=== PATIENT | female | born 2000 | race Two or more races ===

== ENCOUNTER 2021-01-21 02:24 | Emergency (ER) | payer SELFPAY ==
[~2021-01-21] VITALS: Ht 157.5 cm; Wt 113.4 kg
[2021-01-21 02:48] VITALS: BP 126/84
[2021-01-21 03:58] LABS: Basophils # (auto) 0 10 ^3/uL (0-0.2); Basophils % (auto) 0.4 % (0.0-2.0); Eosinophils # (auto) 0 10 ^3/uL (0-0.8); Eosinophils % (auto) 0.4 % (0.0-7.0); Hematocrit 40.2 % (36.0-46.0); Hemoglobin 13.7 g/dL (12.2-16.2); Lymphocytes # (auto) 2.7 10 ^3/uL (0.4-5.4); Lymphocytes % (auto) 27.7 % (10.0-50.0); Mean Corpuscular Hemoglobin 28.1 pg (28.0-32.0); Mean Corpuscular Hgb Conc. 33.9 g/dL (32.0-36.0); Mean Corpuscular Volume 82.6 fL (80.0-100.0); Monocytes # (auto) 0.5 10 ^3/uL (0-1.3); Monocytes % (auto) 5.3 % (0.0-12.0); Neutrophils # (auto) 6.4 10 ^3/uL (1.6-8.6); Neutrophils % (auto) 66.2 % (37.0-80.0); Nucleated Red Blood Cells % 0.1 %; Red Blood Cells 4.87 10^6/uL (4.0-5.20); Red Cell Distribution Width 13.6 % (11.8-14.3); White Blood Cell 9.7 10^3/uL (4.4-10.8)
[2021-01-21 04:28] LABS: Potassium 3.2 mmol/L (3.5-5.1)
[2021-01-21 04:33] LABS: Albumin 3.8 g/dL (3.4-5.0); BUN/Creatinine Ratio 21.1; Calcium 8.6 mg/dL (8.5-10.1)
[2021-01-21 04:36] LABS: Bilirubin, Total 0.4 mg/dL (0.2-1.0); Total Protein 7.9 g/dL (6.4-8.2)
== END 2021-01-21 03:40 | disposition left against medical advice (07) ==
LOC: EDBD 02:24 → EDSEX 02:24 → ER 02:24
DX: F10.129 Alcohol abuse with intoxication, unspecified (principal); R11.10 Vomiting, unspecified; Y90.8 Blood alcohol level of 240 mg/100 ml or more; Z53.21 Procedure and treatment not carried out due to patient leaving prior to being seen by health care provider; Z20.822 Contact with and (suspected) exposure to COVID-19
CPT/HCPCS: 36415; 80053; 80320; 85025

== ENCOUNTER 2023-01-14 20:38 | Emergency (ER) | payer MEDICAID, OTHER ==
[~2023-01-14] VITALS: Ht 152.4 cm; Wt 89.7 kg
[2023-01-15] MEDS ORDERED: CYCL-837 PO (02:12)
[2023-01-15] MEDS ORDERED: ACET500T58 PO (02:12)
[2023-01-15 02:45] VITALS: BP 132/78; PULSE 69; RESP 16; TEMP 98; O2SAT 98
== END 2023-01-15 03:12 | disposition home or self-care (01) ==
LOC: ER 20:38
DX: S16.1XXA Strain of muscle, fascia and tendon at neck level, initial encounter (principal); S09.8XXA Other specified injuries of head, initial encounter; Z79.1 Long term (current) use of non-steroidal anti-inflammatories (NSAID); Z79.899 Other long term (current) drug therapy; V43.62XA Car passenger injured in collision with other type car in traffic accident, initial encounter; Y93.89 Activity, other specified; Y92.481 Parking lot as the place of occurrence of the external cause; Y99.8 Other external cause status
CPT/HCPCS: 70450; 72125

== ENCOUNTER 2024-07-16 18:05 | Observation (INO) | payer MEDICAID ==
[~2024-07-16] VITALS: Ht 154.9 cm; Wt 86.2 kg
[~2024-07-16 18:05] MED LIST: ACET500T58 PO; CYCL-837 PO
[2024-07-16] MEDS ORDERED: TERBUTALINE SULFATE 1 MG/ML 1ML VIAL SC ONE (19:20)
[2024-07-16] MEDS: TERBUTALINE SULFATE 1 MG/ML 1ML VIAL SC SCH (19:25)
--- NOTE | 2024-07-16 21:57 | DVHDS2 ---
Physician Discharge Progress N Final Diagnosis: 3rd trim preg, nuchal cord contractions, not in labor Secondary Diagnosis: surveillance Operations or Procedures: Operations or Procedures NST Commentary: Commentary Terbutaline x 2 Cervix closed, not in labor NST , no decels. categ 1 Condition on Discharge: Stable Disposition: Home Discharge Instructions: Diet: Regular Activity: Light activity Follow Up/Referral: PRN Medications: N/A Follow Up Care: Discharge Statement: "Patient was advised to return to the ER or call 911 if any headaches, dizziness, shortness of breath, chest pain, abdominal pain, bleeding, fevers, or worsening of medical condition. Patient was counseled about treatment plan, medications, possible side effects, patientverbalized understanding. All questions were answered to the best of my ability. This discharge took greater then 30 minutes in planning, reviewing documentation, counseling the patient, and discussing with other team members." Visit Coding OBGYN Date of Service: Jul 16, 2024 Billing Provider: CHET WOLFE DO AUTO TRANSMISSION MECHANIC Common Visit Codes: 56392-VFZ/OBS SAME DATE (MOD) CHET WOLFE DO Jul 16, 2024 21:57
== END 2024-07-16 21:32 | disposition home or self-care (01) ==
LOC: LDRP 18:05
PROVIDERS: ADMIT Obstetrics & Gynecology; ATTEND Obstetrics & Gynecology
DX: O69.81X0 Labor and delivery complicated by cord around neck, without compression, not applicable or unspecified (principal); O60.03 Preterm labor without delivery, third trimester; Z98.890 Other specified postprocedural states; Z79.899 Other long term (current) drug therapy; Z3A.33 33 weeks gestation of pregnancy
CPT/HCPCS: 59025; 81002; 94760; 96372; G0378; J3105

== ENCOUNTER 2024-07-18 11:17 | Observation (INO) | payer MEDICAID ==
--- NOTE | 2024-07-18 12:51 | DVHDS2 ---
Physician Discharge Progress N Final Diagnosis: IUP 34 wk, NOT in labor Secondary Diagnosis: Encounter for NST/BPP Operations or Procedures: Operations or Procedures NST/BPP/SELENE all WNL NST reactive categ 1 SELENE 9cm Cx length > 3cm (Normal) Condition on Discharge: Stable Disposition: Home Discharge Instructions: Diet: Regular Activity: Light activity Follow Up/Referral: PRN Medications: NA Follow Up Care: Discharge Statement: "Patient was advised to return to the ER or call 911 if any headaches, dizziness, shortness of breath, chest pain, abdominal pain, bleeding, fevers, or worsening of medical condition. Patient was counseled about treatment plan, medications, possible side effects, patientverbalized understanding. All questions were answered to the best of my ability. This discharge took greater then 30 minutes in planning, reviewing doc umentation, counseling the patient, and discussing with other team members." Visit Coding OBGYN Date of Service: Jul 18, 2024 Billing Provider: CHET WOLFE DO DRYWALL MECHANIC Common Visit Codes: [id number] INP/OBS CARE(HIGH) CHET WOLFE DO Jul 18, 2024 12:51
[2024-07-18] MEDS ORDERED: PREN-96 PO (12:55)
--- NOTE | 2024-07-18 12:59 | DVH ---
CLINICAL HISTORY: Nuchal cord. labor. COMPARISON: None TECHNIQUE: biophysical profile was performed. Transabdominal sonographic images of the fetus we re obtained. FINDINGS: The fetus is in cephalic position. heart rate measures 145 BPM. Amniotic fluid index measures 9 cm. The placenta is fundal in position without visualized evidence for previa or abruption . Cervix was measured transabdominally as 3.2 cm. BPP profile is an overall score of 8/8, with 2/2 points for breathing, with at least one episode of breathing over a 30 second duration during a 30 minute observation, 2/2 points for m ovements, with 3 or more discrete body or limb movements, 2/2 points for tone, with one or more episodes of extremity extension with return to flexion, or opening and closing of hand, and 2/ 2 points for amniotic fluid, with at least 1 pocket of amniotic fluid that measures 2 cm in 2 perpend icular planes. IMPRESSION: BPP score of 8/8.
== END 2024-07-18 13:05 | disposition home or self-care (01) ==
LOC: LDRP 11:17
PROVIDERS: ADMIT Obstetrics & Gynecology; ATTEND Obstetrics & Gynecology
DX: O62.9 Abnormality of forces of labor, unspecified (principal); Z98.890 Other specified postprocedural states; Z79.899 Other long term (current) drug therapy; Z3A.34 34 weeks gestation of pregnancy
CPT/HCPCS: 59025; 76819; 81002; 94760; G0378

== ENCOUNTER 2024-07-25 07:40 | Observation (INO) | payer MEDICAID ==
[~2024-07-25 07:40] MED LIST changes: +PREN-96 PO
--- NOTE | 2024-07-25 10:17 | DVH ---
BIOPHYSICAL PROFILE HISTORY: NUCHAL/ PTL Comparison Study: None available at time of dictation. TECHNIQUE: Multiple real-time grayscale sonographic images through the gravid uterus of the fetus wit h duplex doppler color flow and M-mode spectral analysis FINDINGS: BIOPHYSICAL PROFILE: breathing score: 2 movement score: 2 tone score: 2 Quantitative SELENE score: 2 (SELENE: 10.8 cm.) Total score: 8/8 The cervix 3.5 cm Single live fetus in cephalic presentation. heart rate 128 beats per minute. posterior/fundal placenta without previa or abruption Biophysical profile score 8/8 corresponding to an JACK of 08/29/24 IMPRESSION: Biophysical profile score: 8/8 A nuchal cord is seen.
--- NOTE | 2024-07-26 06:23 | DVHDS2 ---
Discharge Summary Date of Admission July 25, 2024 at 09:05 Date of Discharge: July 25, 2024 Admitting Diagnosis nuchal cord 35 week Brief Hx & Hospital Course: normal reassuring FHT Condition at Discharge: Good Final Diagnosis/Problems List 35 weeks reassuring heart tones Discharge Disposition: Home Discharge Instruct/Medications Diet: Regular Activity: Light activity Discharge Statement: "Patient was advised to return to the ER or call 911 if any headaches, dizziness, shortness of breath, chest pain, abdominal pain, bleeding, fevers, or worsening of medical condition. Patient was counseled about treatment plan, medications, possible side effects, patientverbalized understanding. All questions were answered to the best of my ability. This discharge took greater then 30 minutes in planning, reviewing documentation, counseling the patient, and discussing with other team members." ASSESSMENT ASSESSMENT Assessment Visit Coding OBGYN Date of Service: July 26, 2024 Billing Provider: CHESTER AVILA DO POUCH MAKER Common Visit Codes: 75760-SHM/OBS SAME DATE (LOW), 32165-WBO/OBS SAME DATE (MOD), 55129-OZU/OBS SAME DATE (HIGH) POUCH MAKER Procedure Codes: 83444-46- NON-STRESS TEST CHESTER AVILA DO July 26, 2024 06:23
== END 2024-07-25 12:15 | disposition home or self-care (01) ==
LOC: LDRP 09:05
PROVIDERS: ADMIT Obstetrics & Gynecology; ATTEND Obstetrics & Gynecology
DX: O69.81X0 Labor and delivery complicated by cord around neck, without compression, not applicable or unspecified (principal); Z98.890 Other specified postprocedural states; Z79.899 Other long term (current) drug therapy; Z3A.35 35 weeks gestation of pregnancy
CPT/HCPCS: 59025; 76819; 81002; G0378

== ENCOUNTER 2024-08-01 07:48 | Observation (INO) | payer MEDICAID ==
--- NOTE | 2024-08-01 11:50 | DVH ---
CLINICAL HISTORY: Nuchal cord. labor. COMPARISON: US BIOPHYSICAL PROFILE on DOS: 07/25/24, US BIOPHYSICAL PROFILE on DOS: 07/18/24 TECHNIQUE: biophysical profile was performed. Transabdominal sonographic images of the fetus we re obtained. FINDINGS: The fetus is in cephalic position. heart rate measures 157 BPM. Amniotic fluid index measures 11.2 cm. The placenta is posterior/fundal in position without evidence of previa or abruptio n. Nuchal cord again visualized. BPP profile is an overall score of 8/8, with 2/2 points for breathing, with at least one episode of breathing over a 30 second duration during a 30 minute observation, 2/2 points for m ovements, with 3 or more discrete body or limb movements, 2/2 points for tone, with one or more episodes of extremity extension with return to flexion, or opening and closing of hand, and 2/ 2 points for amniotic fluid, with at least 1 pocket of amniotic fluid that measures 2 cm in 2 perpend icular planes. IMPRESSION: 1. BPP score of 8/8. 2. Nuchal cord again visualized.
--- NOTE | 2024-08-01 20:14 | DVHDS2 ---
Physician Discharge Progress N Final Diagnosis: iugr 36wks Operations or Procedures: Operations or Procedures nst reactive reviewed Condition on Discharge: Good Disposition: Home Discharge Instructions: Diet: Regular Activity: No Restrictions, As Tolerated Medications: na Follow Up Care: Specialist: 3d Discharge Statement: "Patient was advised to return to the ER or call 911 if any headaches, dizziness, shortness of breath, chest pain, abdominal pain, bleeding, fevers, or worsening of medical condition. Patient was counseled about treatment plan, medications, possible side effects, patientverbalized understanding. All questions were answered to the best of my ability. This discharge took greater then 30 minutes in planning, reviewing documentation , counseling the patient, and discussing with other team members." Visit Coding OBGYN Date of Service: August 01, 2024 Billing Provider: ISIDRO COLE DO GLUING MACHINE OPERATOR Common Visit Codes: 87737-[id number] INP/OBS CARE (HIGH), 23411-[id number] INP/OBS CARE(HIGH) GLUING MACHINE OPERATOR Procedure Codes: 46305-36- NON-STRESS TEST ISIDRO COLE DO August 01, 2024 20:14
== END 2024-08-01 12:25 | disposition home or self-care (01) ==
LOC: LDRP 11:04
PROVIDERS: ADMIT Obstetrics & Gynecology; ATTEND Obstetrics & Gynecology
DX: O36.5930 Maternal care for other known or suspected poor fetal growth, third trimester, not applicable or unspecified (principal); Z98.890 Other specified postprocedural states; Z79.899 Other long term (current) drug therapy; Z3A.36 36 weeks gestation of pregnancy
CPT/HCPCS: 76819; 81002; 94760; G0378

== ENCOUNTER 2024-08-04 13:12 | Observation (INO) | payer MEDICAID ==
--- NOTE | 2024-08-04 14:43 | DVHDS2 ---
Physician Discharge Progress N Final Diagnosis: iugr,nuchal [id number] Operations or Procedures: Operations or Procedures nst reactive reviewed Condition on Discharge: Good Disposition: Home Discharge Instructions: Diet: Regular Activity: No Restrictions, As Tolerated Medications: na Follow Up Care: Specialist: 4d Discharge Statement: "Patient was advised to return to the ER or call 911 if any headaches, dizziness, shortness of breath, chest pain, abdominal pain, bleeding, fevers, or worsening of medical condition. Patient was counseled about treatment plan, medications, possible side effects, patient�verbalized understanding. All questions were answered to the best of my ability. This discharge took greater then 30 minutes in planning, reviewing do cumentation, counseling the patient, and discussing with other team members." Visit Coding OBGYN Date of Service: August 04, 2024 Billing Provider: ISIDRO COLE DO ANDROID IOS DEVELOPER Common Visit Codes: 29037-ONRAJDZ OBS CARE (HIGH) ANDROID IOS DEVELOPER Procedure Codes: 89030-30- NON-STRESS TEST ISIDRO COLE DO August 04, 2024 14:43
--- NOTE | 2024-08-04 14:45 | DVH ---
BIOPHYSICAL PROFILE HISTORY: nuchal TECHNIQUE: Multiple transabdominal real-time grayscale sonographic images through the gravid uterus of the fetus with duplex Doppler color flow and M-mode spectral analysis FINDINGS: BIOPHYSICAL PROFILE: breathing score: 2 movement score: 2 tone score: 2 Quantitative SELENE score: 2 (SELENE: 13 Cm, mvp: 4 CM.) Total score: 8/8 The cervix NOT MEASURED Single live fetus in cephalic presentation. heart rate 167 beats per minute. Posterior Grade 2 placenta without previa or abruption Single live fetus at 36 weeks 3 days Biophysical profile score 8/8 corresponding to an JACK of 08/29/2024 Estimated weight not calculated g IMPRESSION: 1. Biophysical profile score: 8/8 2. Nuchal cord not visualized however color Doppler not provide at off the cervical region. 3. FHR: 167 bpm
== END 2024-08-04 15:19 | disposition home or self-care (01) ==
LOC: LDRP 13:12
PROVIDERS: ADMIT Obstetrics & Gynecology; ATTEND Obstetrics & Gynecology
DX: O36.5930 Maternal care for other known or suspected poor fetal growth, third trimester, not applicable or unspecified (principal); O69.81X0 Labor and delivery complicated by cord around neck, without compression, not applicable or unspecified; Z3A.36 36 weeks gestation of pregnancy; Z79.899 Other long term (current) drug therapy
CPT/HCPCS: 59025; 76819; 81002; 94760; G0378

== ENCOUNTER 2024-08-09 12:35 | Observation (INO) | payer MEDICAID ==
--- NOTE | 2024-08-09 16:30 | DVH ---
BIOPHYSICAL PROFILE HISTORY: IUGR TECHNIQUE: Multiple transabdominal real-time grayscale sonographic images through the gravid uterus of the fetus with duplex Doppler color flow and M-mode spectral analysis FINDINGS: BIOPHYSICAL PROFILE: breathing score: 2/2 movement score: 2/2 tone score: 2/2 Quantitative SELENE score: 2/2 (SELENE: 13.6 Cm.) Total score: 8/8 The cervix closed Single live fetus in cephalic presentation. heart rate 138 beats per minute. Grade 3 posterior placenta without previa or abruption IMPRESSION: 1. Biophysical profile score: 8/8.No change 2. There is a nuchal cord present
--- NOTE | 2024-08-09 17:14 | DVHDS2 ---
Physician Discharge Progress N Final Diagnosis: IUGR, Nuchal cord, IUP 37 wk Operations or Procedures: Operations or Procedures NST/BPP/ SELENE NST reactive reviewed No decelerations Condition on Discharge: Stable Disposition: Home Discharge Instructions: Diet: Regular Activity: No Restrictions, As Tolerated Follow Up/Referral: As scheduled Medications: N/A Follow Up Care: Discharge Statement: "Patient was advised to return to the ER or call 911 if any headaches, dizziness, shortness of breath, chest pain, abdominal pain, bleeding, fevers, or worsening of medical condition. Patient was counseled about treatment plan, medications, possible side effects, patientverbalized understanding. All questions were answered to the best of my ability. This discharge took greater then 30 minutes in planning, reviewing documentation, counseling the patient, and discussing with other team members." Visit Coding OBGYN Date of Service: August 09, 2024 Billing Provider: CHET WOLFE DO TRADE CLERK Common Visit Codes: 47000-GLR/OBS SAME DATE (MOD) TRADE CLERK Procedure Codes: 16654-01- NON-STRESS TEST CHET WOLFE DO August 09, 2024 17:14
== END 2024-08-09 14:47 | disposition home or self-care (01) ==
LOC: LDRP 12:35
PROVIDERS: ADMIT Obstetrics & Gynecology; ATTEND Obstetrics & Gynecology
DX: O36.5930 Maternal care for other known or suspected poor fetal growth, third trimester, not applicable or unspecified (principal); O69.81X0 Labor and delivery complicated by cord around neck, without compression, not applicable or unspecified; Z98.890 Other specified postprocedural states; Z79.899 Other long term (current) drug therapy; Z3A.37 37 weeks gestation of pregnancy
CPT/HCPCS: 59025; 76819; 81002; 94760; G0378

== ENCOUNTER 2024-08-12 06:20 | Observation (INO) | payer MEDICAID ==
--- NOTE | 2024-08-12 10:28 | DVH ---
BIOPHYSICAL PROFILE HISTORY: IUGR TECHNIQUE: Multiple transabdominal real-time grayscale sonographic images through the gravid uterus o f the fetus with duplex doppler color flow and M-mode spectral analysis FINDINGS: BIOPHYSICAL PROFILE: breathing score: 2 movement score: 2 tone score: 2 Quantitative SELENE score: 2 (SELENE: 10.1 cm.) Total score: 8/8 Single live fetus in cephalic presentation. heart rate 146 beats per minute. Posterior placenta without previa or abruption Biophysical profile score 8/8 corresponding to an JACK of 08/29/24 IMPRESSION: Biophysical profile score: 8/8 A possible nuchal cord is seen.
--- NOTE | 2024-08-13 13:30 | DVHDS2 ---
Physician Discharge Progress N Final Diagnosis: iugr 37wks Operations or Procedures: Operations or Procedures nst reactive reviewed ,sono Condition on Discharge: Good Disposition: Home Discharge Instructions: Diet: Regular Activity: No Restrictions, As Tolerated Medications: na Follow Up Care: Specialist: 1d Discharge Statement: "Patient was advised to return to the ER or call 911 if any headaches, dizziness, shortness of breath, chest pain, abdominal pain, bleeding, fevers, or worsening of medical condition. Patient was counseled about treatment plan, medications, possible side effects, patientverbalized understanding. All questions were answered to the best of my ability. This discharge took greater then 30 minutes in planning, reviewing documen tation, counseling the patient, and discussing with other team members." Visit Coding OBGYN Date of Service: August 12, 2024 Billing Provider: ISIDRO COLE DO RESIDENTIAL SERVICE TECHNICIAN Common Visit Codes: 55993-CIAHNJA OBS CARE (HIGH) RESIDENTIAL SERVICE TECHNICIAN Procedure Codes: 80910-00- NON-STRESS TEST ISIDRO COLE DO August 13, 2024 13:30
== END 2024-08-12 12:02 | disposition home or self-care (01) ==
LOC: LDRP 09:36
PROVIDERS: ADMIT Obstetrics & Gynecology; ATTEND Obstetrics & Gynecology
DX: O36.5930 Maternal care for other known or suspected poor fetal growth, third trimester, not applicable or unspecified (principal); Z3A.37 37 weeks gestation of pregnancy; Z79.899 Other long term (current) drug therapy
CPT/HCPCS: 59025; 76819; 81002; 94760; G0378

== ENCOUNTER 2024-08-13 00:29 | Observation (INO) | payer MEDICAID ==
--- NOTE | 2024-08-13 09:27 | DVH ---
BIOPHYSICAL PROFILE HISTORY: IUGR/ non reactive tracing Comparison Study: US BIOPHYSICAL PROFILE on DOS: 08/12/24, US BIOPHYSICAL PROFILE on DOS: 08/09/24, US BIOPHYSICAL PROFILE on DOS: 08/04/24, US BIOPHYSICAL PROFILE on DOS: 08/01/24, US BIOPHYSICAL PROFILE o n DOS: 07/25/24 TECHNIQUE: Multiple real-time grayscale sonographic images through the gravid uterus of the fetus wi th duplex Doppler color flow and M-mode spectral analysis FINDINGS: BIOPHYSICAL PROFILE: breathing score: 2 movement score: 2 tone score: 2 Quantitative SELENE score: 2 (SELENE: 15.8 Cm.) Total score: 8 The cervix is not visualized Single live fetus in cephalic presentation. heart rate 130 beats per minute. Posterior placenta without previa or abruption No nuchal cord seen at this time. IMPRESSION: Biophysical profile score: 8
--- NOTE | 2024-08-13 11:45 | DVHDS2 ---
Physician Discharge Progress N Final Diagnosis: iugr 38wks Operations or Procedures: Operations or Procedures nst reviwed reactive,sono Condition on Discharge: Good Disposition: Home Discharge Instructions: Diet: Regular Activity: No Restrictions, As Tolerated Medications: na Follow Up Care: Specialist: one day for induction Discharge Statement: "Patient was advised to return to the ER or call 911 if any headaches, dizziness, shortness of breath, chest pain, abdominal pain, bleeding, fevers, or worsening of medical condition. Patient was counseled about treatment plan, medications, possible side effects, patientverbalized understanding. All questions were answered to the best of my ability. This discharge took greater then 30 minutes in planning, reviewing documentation, counseling the patient, and discussing with other team members." Visit Coding OBGYN Date of Service: August 13, 2024 Billing Provider: ISIDRO COLE DO PAPERHANGER SUPERVISOR Common Visit Codes: 92930-[id number] OBS CARE (HIGH) PAPERHANGER SUPERVISOR Procedure Codes: 42278-18- NON-STRESS TEST ISIDRO COLE DO August 13, 2024 11:45
== END 2024-08-13 10:07 | disposition home or self-care (01) ==
LOC: LDRP 07:26
PROVIDERS: ADMIT Obstetrics & Gynecology; ATTEND Obstetrics & Gynecology
DX: O36.5930 Maternal care for other known or suspected poor fetal growth, third trimester, not applicable or unspecified (principal); Z3A.38 38 weeks gestation of pregnancy; Z79.899 Other long term (current) drug therapy; Z98.890 Other specified postprocedural states
CPT/HCPCS: 59025; 76819; 81002; 94760; G0378

== ENCOUNTER 2024-08-14 07:04 | Inpatient (IN) | payer MEDICAID ==
[~2024-08-14] VITALS: Ht 152.4 cm; Wt 91.2 kg
[2024-08-14] MEDS ORDERED: BUTORPHANOL TARTRATE 2 MG/1 ML VIAL IV PRN ×2 (08:00)
[2024-08-14] MEDS ORDERED: LIDOCAINE 2%HCL (LOCAL ANESTH.) INJ 20ML MDV IJ PRN (08:00)
[2024-08-14 08:45] LABS: Basophils # (auto) 0 10 ^3/uL (0-0.2); Hematocrit 36.9 % (36.0-46.0); Lymphocytes # (auto) 1.6 10 ^3/uL (0.4-5.4); Monocytes # (auto) 0.7 10 ^3/uL (0-1.3); Platelet Count (auto) 209 10^3/uL (140-450); White Blood Cell 9.3 10^3/uL (4.4-10.8)
[2024-08-14 08:47] LABS: Basophils % (auto) 0.2 % (0.0-2.0); Eosinophils # (auto) 0 10 ^3/uL (0-0.8); Eosinophils % (auto) 0.4 % (0.0-7.0); Hemoglobin 12.2 g/dL (12.2-16.2); Lymphocytes % (auto) 17.1 % (10.0-50.0); Mean Corpuscular Hemoglobin 26.4 pg (28.0-32.0); Mean Corpuscular Hgb Conc. 33.1 g/dL (32.0-36.0); Mean Corpuscular Volume 79.6 fL (80.0-100.0); Monocytes % (auto) 7.1 % (0.0-12.0); Neutrophils % (auto) 75.2 % (37.0-80.0); Red Blood Cells 4.64 10^6/uL (4.0-5.20); Red Cell Distribution Width 15.1 % (11.8-14.3)
[2024-08-14] MEDS: miSOPROStol 50 MCG per PRE-CUT 1/2 TAB PO PRN (08:56)
[2024-08-14] MEDS: LACTATED RINGER'S 1,000 ML IV SCH (08:57)
[2024-08-14 09:01] LABS: INR 0.94 (0.9-1.15); Partial Thromboplastin Time 27.8 SEC (24.5-34.5)
[2024-08-14 09:04] LABS: Urine Bacteria None Seen /hpf (None Seen)
[2024-08-14 09:10] LABS: Alanine Aminotransferase 11 U/L (7-40); Albumin 3.7 g/dL (3.2-4.8); Anion Gap 11 (5-15); BUN/Creatinine Ratio 18.2 (10.0-20.0); Bilirubin, Total 0.4 mg/dL (0.2-1.0); Carbon Dioxide 21 mmol/L (20-31); Chloride 106 mmol/L (98-107); Glucose 89 mg/dL (74-106); Potassium 3.7 mmol/L (3.5-5.1); Sodium 138 mmol/L (136-145); Total Protein 6.1 g/dL (5.7-8.2)
[2024-08-14 09:13] LABS: Alkaline Phosphatase 117 U/L (46-116); Aspartate Aminotransferase 11 U/L (13-40); Blood Urea Nitrogen 6 mg/dL (9-23)
[2024-08-14 09:18] LABS: Urine Blood Negative /uL (Negative); Urine Clarity Clear (Clear); Urine Color Light-Yellow (Yellow); Urine Protein, UAD Negative (Negative); Urine Specific Gravity 1.019 (1.001-1.035); Urine Squamous Epithelial Cell FEW /hpf (<5); Urine Urobilinogen Normal (Negative); Urine WBC 2 /HPF (0-5)
[2024-08-14 09:24] LABS: Amphetamine Screen, Urine Neg (NEGATIVE); Barbiturate Scree,Urine Neg (NEGATIVE); Benzodiazephine Screen, Urine Neg (NEGATIVE); Cannabinoid Screen, Urine Neg (NEGATIVE); Cocaine Screen, Urine Neg (NEGATIVE); Opiate Scree,Urine Neg (NEGATIVE); Phencyclidine Screen, Urine Neg (NEGATIVE)
[2024-08-14] MEDS ORDERED: TERBUTALINE SULFATE 1 MG/ML 1ML VIAL SC PRN (17:45)
[2024-08-14] MEDS: DINOPROSTONE 10MG VAG SUPP PV ONE (18:58)
--- NOTE | 2024-08-15 09:08 | DVHHP2 ---
OB CC & HPI Patient Identification: : 1 Para: 0 EDC: Aug 28, 2024 EGA: 37 08/28 Chief Complaints: Reason for admission: induction of labor (iugr) History of Present Complaints no issues Past Medical History Cardiac: No pertinent Hx Pulmonary: No pertinent Hx Central Nervous System: No pertinent Hx GI: No pertinent Hx Hemotology/Oncology: No pertinent Hx Hepatobiliary: No pertinent Hx Psychiatric: No pertinent Hx Musculoskeletal: No pertinent Hx Rheumotologic: No pertinent Hx Infectious Disease: No peritnent Hx ENT: No pertinent Hx Renal/: No pertinent Hx Endocrine: No pertinent Hx Dermatology: No pertinent Hx Past Surgical History: No pertinent Hx OB History OB History Care: Good Care Ultrasounds: Abnormal US findings (IUGR) Allergies: Coded Allergies: NO KNOWN ALLERGIES (Unverified , 05/05/12) Home Meds Active Scripts Acetaminophen (Acetaminophen) 500 Mg Tab, 500 MG PO QIDP, #30 TAB 0 Refills Prov:DARIUS HAWKINS 01/15/23 Cyclobenzaprine Hcl (Cyclobenzaprine Hcl) 5 Mg Tab, 1 TAB PO QPM PRN, #14 TAB 0 Refills Prov:DARIUS HAWKINS 01/15/23 Reported Medications Vit W/ Ferrous Fumara ( One Daily) Daily Tab, 1 TAB PO DAILY, #90 TAB 3 Refills 07/18/24 Current Medications Current Medications Medications (Trade) Dose Ordered Sig/Lei Route PRN Reason Start Time Stop Time Status Last Admin Oxytocin 1,000 ml @ 6 ml/hr Q24H IV 08/14/24 17:45 Terbutaline Sulfate (Brethine Inj) 0.25 mg ONCE PRN SC Uterine tachysystole 08/14/24 17:45 Family & Social History Family/Social History Blood Type: O+ Rubella: not immune RPR/VDRL: Negative GBS Status: Negative HBsAG: Negative Review of Systems Constitutional: No symptom reported Ears, Nose, & Throat: No symptom reported Eyes: No symptom reported Pulmonary/Respiratory: No symptom reported Cardiovascular: No symptom reported Gastrointestinal: No symptom reported Genitourinary: No symptom reported Musculoskeletal: No symptom reported Skin: No symptom reported Psychiatric: No symptom reported Endocrine: No symptom reported Hemotologic/Lymphatic: No symptom reported OB Admission Exam Physical Exam Vitals: Afebrile vital signs stable Cervical Dilatation: Fingertip Effacement: 75% Station: -3 Heart Rate: 130's Accelerations: Accelerations Present Decelerations: No Decelerations Short Term Variability: Present Assisted Variability: Average (6-25) Contractions on Admission: None OB Plan Plan Admitting Diagnosis: Induction for IUGR 37-6/7 weeks Plan: Induction (Cytotec induction) CHESTER AVILA DO August 15, 2024 09:08
--- NOTE | 2024-08-15 09:12 | DVHPN2 ---
Chief Complaints Patient reports: No new complaints Nursing reports: No new complaints, No abdominal pain, No chest pain, No dizziness, No cough Objective Medications Current Medications Medications (Trade) Dose Ordered Sig/Lei Route PRN Reason Start Time Stop Time Status Last Admin Oxytocin 1,000 ml @ 6 ml/hr Q24H IV 08/14/24 17:45 Terbutaline Sulfate (Brethine Inj) 0.25 mg ONCE PRN SC Uterine tachysystole 08/14/24 17:45 General: Normal Neck: Normal Lungs: Normal Cardiovascular: Normal Heart Murmur: no murmur Abdominal: Soft (+BS Gravid) Musculoskeletal: Normal Extremities: Normal Skin: Normal Neurological: Normal Studies Laboratory Tests 08/14/24 08:12 Test 08/14/24 08:12 Range/Units Serum Glucose 89 74-106 mg/dL Ass/Plan Assessment Hospital day 2 status post Cytotec and Cervidil cervix with some progression 2.5 cm 75% intact Plan Reassuring heart tones, continue induction. CHESTER AVILA DO August 15, 2024 09:12
[2024-08-15] MEDS ORDERED: NALOXONE HCL 0.4 MG/ML VIAL IV ONE (19:00)
[2024-08-15] MEDS: ROPIVACAINE HCL 200 ML ONE (22:53)
[2024-08-16] MEDS: ACETAMINOPHEN 325 MG TAB PO PRN ×2 (01:01→16:31)
[2024-08-16] MEDS: ceFAZolin 2 GM/D5W50ml 50 ML IV ONE (01:01)
[2024-08-16] MEDS: ePHEDrine SULFATE 50 MG/ML AMP IV ONE (01:03)
[2024-08-16] MEDS: LACT. RINGERS/OXYTOCIN 20UNITS 1,000 ML IV SCH (01:06)
[2024-08-16] MEDS: SODIUM CHLORIDE 0.9% 1,000 ML IUPC SCH (05:22)
[2024-08-16] MEDS: SODIUM CHLORIDE 0.9% 250 ML IUPC ONE (05:22)
--- NOTE | 2024-08-16 07:46 | LDN2 ---
Labor and Delivery Note Date 08/16/24 Age 23 1 Para 1 EDC 6-7 EGA 38WKS Diagnosis INDUCTION OF LABOR FOR IUGR,38WKS Vaginal Delivery: VTX Vacuum Assisted: No Placenta: Spontaneous Sex: Male Apgars 8-9 Nuchal Cord Transected: Yes Amniotic Fluid: Clear Anesthesia EPIDURAL Episiotomy: No Extension: No Repaired with NONE EBL 300ML Labs Blood Bank 08/14/24 08:12: Blood Type O POSITIVE Complications NONE Conditions STABLE Comments/Significant Med Sugar SPEC EXAM NO CXAL LAC Visit Coding OBGYN Date of Service: August 16, 2024 Billing Provider: ISIDRO COLE DO SAFETY NET MAKER Common Visit Codes: 01387-TIBPBKI OBS CARE (HIGH), 18267-[id number] INP/OBS CARE(HIGH) SAFETY NET MAKER Procedure Codes: 23721-IJA DELIVERY ONLY ISIDRO COLE DO August 16, 2024 07:46
[2024-08-16] MEDS ORDERED: ONDANSETRON ODT 4 MG TAB PO PRN (08:00)
[2024-08-16] MEDS ORDERED: ACETAMINOPHEN 325 MG TAB PO PRN (08:30)
[2024-08-16] MEDS ORDERED: ceFAZolin 1GM/50ML 50 ML IV SCH (09:00)
[2024-08-16] MEDS ORDERED: TRANEXAMIC ACID 1,000 mg/10ml INJ VIAL IV ONE (11:07)
[2024-08-16] MEDS ORDERED: IBUPROFEN 800 MG TAB PO SCH (12:00)
[2024-08-16] MEDS: LACT. RINGERS/OXYTOCIN 20UNITS 500 ML IV ONE ×2 (13:45→13:46)
[2024-08-16 15:00] VITALS: BP 134/70; PULSE 109; RESP 18; TEMP 99.9
[2024-08-16] MEDS: ceFAZolin 1GM/50ML 50 ML IV SCH (16:34)
[2024-08-16 18:30] VITALS: BP 137/82; PULSE 68; RESP 16; TEMP 99.2
[2024-08-16] MEDS: PHISODERM TOP SOLN 240ML BTL TOP PRN (21:50)
[2024-08-16] MEDS: DERMOPLAST 60ML BOTTLE TOP PRN (21:50)
[2024-08-16] MEDS: WITCH HAZEL-GLYCERIN PAD TOP PRN (21:50)
[2024-08-16] MEDS: DOCUSATE SOD 100 MG CAP PO SCH (22:00)
[2024-08-16 23:00] VITALS: BP 133/81; PULSE 99; RESP 18; TEMP 99.4
[2024-08-17 03:00] VITALS: BP 132/89; PULSE 78; RESP 15; TEMP 98.6
[2024-08-17 07:00] VITALS: BP 126/84; PULSE 83; RESP 18; TEMP 98.5; O2SAT 100
[2024-08-17] MEDS ORDERED: IBUP-1455 PO ×2 (08:48)
[2024-08-17] MEDS ORDERED: PREN-96 PO ×2 (08:48)
[2024-08-17] MEDS ORDERED: DOCU-94 PO ×2 (08:48)
[2024-08-17 10:22] LABS: Basophils # (auto) 0 10 ^3/uL (0-0.2); Basophils % (auto) 0.5 % (0.0-2.0); Eosinophils # (auto) 0.1 10 ^3/uL (0-0.8); Eosinophils % (auto) 0.7 % (0.0-7.0); Hematocrit 34.8 % (36.0-46.0); Hemoglobin 11.6 g/dL (12.2-16.2); Lymphocytes # (auto) 1.2 10 ^3/uL (0.4-5.4); Lymphocytes % (auto) 14.9 % (10.0-50.0); Mean Corpuscular Hgb Conc. 33.3 g/dL (32.0-36.0); Monocytes # (auto) 0.8 10 ^3/uL (0-1.3); Monocytes % (auto) 9.9 % (0.0-12.0); Nucleated Red Blood Cells % 0.1 %; Platelet Count (auto) 187 10^3/uL (140-450); Red Blood Cells 4.29 10^6/uL (4.0-5.20); Red Cell Distribution Width 15.1 % (11.8-14.3); White Blood Cell 8.1 10^3/uL (4.4-10.8)
[2024-08-17 10:42] VITALS: BP 127/92; PULSE 79; RESP 18; TEMP 98.9; O2SAT 98
[2024-08-17 11:28] VITALS: TEMP 37.2
--- NOTE | 2024-08-17 14:02 | DVHPN2 ---
Progress Note Date Seen: August 17, 2024 Subjective Bleeding is less, eating food without issues, denies lightheaded/dizziness, pain well controlled with oral medications, no concerns with urinating or BM, passing flatus, ambulating well, well vital signs Vital Sign Date Time Temp Pulse Resp B/P (MAP) Pulse Ox O2 Delivery O2 Flow Rate FiO2 08/17/24 11:28 37.2 08/17/24 10:42 79 18 127/92 (104) 98 08/17/24 07:00 Room Air Total Intake and Output 08/16/24 08/16/24 08/17/24 15:00 23:00 07:00 Output Total 2050 ml 600 ml Balance -2050 ml -600 ml medications Current Medications Medications Dose Ordered Sig/Lei Route Start Time Stop Time Status Last Admin Dose Admin Sean Pablo 1 pad PRN PRN TOP 08/14/24 08:00 08/16/24 21:50 1 PAD Sodium Lauryl Sulfate 240 ml PRN PRN TOP 08/14/24 08:00 08/16/24 21:50 240 ML Benzocaine 1 applic PRN PRN TOP 08/14/24 08:00 08/16/24 21:50 1 APPLIC Butorphanol Tartrate 1 mg Q4HPRN PRN IV 08/14/24 08:00 Cancel Butorphanol Tartrate 2 mg Q4HPRN PRN IV 08/14/24 08:00 Cancel Lidocaine HCl 20 ml ONCE PRN IJ 08/14/24 08:00 Cancel Terbutaline Sulfate 0.25 mg ONCE PRN SC 08/14/24 17:45 Cancel Cefazolin Sodium 50 ml @ 100 mls/hr Q8HR IV 08/16/24 09:00 Cancel Acetaminophen 650 mg Q4HP PRN PO 08/16/24 08:00 08/16/24 16:31 650 MG Ondansetron HCl 4 mg Q4HPRN PRN PO 08/16/24 08:00 Cancel Docusate Sodium 200 mg HS PO 08/16/24 22:00 Ibuprofen 800 mg Q6HR PO 08/16/24 12:00 Acetaminophen 650 mg Q6HP PRN PO 08/16/24 08:30 Cefazolin Sodium 50 ml @ 100 mls/hr Q8HR IV 08/16/24 16:30 08/17/24 08:25 100 MLS/HR laboratory and microbiology Laboratory Tests 08/17/24 09:34 08/14/24 08:12 Test 08/14/24 08:12 Range/Units Serum Glucose 89 74-106 mg/dL Objective O: Chest: heart sounds normal and lung sounds clear bilaterally Abd: soft, non-tender, fundus at U/firm/midline, active bowel sounds, no rebound or guarding Perineum: intact, no erythema/edema noted Ext: Non-tender, No edema Lochia: minimal See lab results Problems(with codes): (1) (normal spontaneous vaginal delivery) (2) Intact perineum Assessment/Plan A: 23yo now PPD#1 s/p Rh+ Rubella non-immune Breast and bottle feeding Pain control with PO medications P: D/C home today Rx sent to pharmacy precautions and preeclampsia warning signs reviewed F/U with [facility] office in 2 weeks Plan discussed with: Patient, Other (partner) Visit Coding OBGYN Date of Service: August 17, 2024 Billing Provider: SHAD LIMA CNM RESEARCH AND INSIGHTS EXECUTIVE Common Visit Codes: [id number] INP/OBS CARE(HIGH) BERNIE TUBBS STUDENTMDW August 17, 2024 14:02
--- NOTE | 2024-08-17 14:02 | DVHDS2 ---
Obstetrics Discharge Summary Obstetrics Discharge Summary Date of Admission: August 14, 2024 Date of Discharge: August 17, 2024 Reason For Admission: Induction of Labor Procedures: NST, Mgmt of Obstetrics Compli (IUGR) Intrapartum Procedures: Spontaneous vaginal deliv Procedures: Hct/date: (08/17/24), Hgb/date: (08/17/24) Operative Complicat: None Discharge Diagnosis: Term -Delivered Discharge Information: Activity (as tolerated, no heavy lifting and nothing in the vagina for 6 weeks), Diet (Routine), Medications (RX sent), Instructions (Routine), Discharge to (Home), Accompanied by (partner), Discarge date (08/17/24) Visit Coding OBGYN Date of Service: August 17, 2024 Billing Provider: SHAD LIMA CNM SHERIFF DEPUTY Common Visit Codes: 89997-PBX/OBS DISCH DAY <30MIN BERNIE TUBBS STUDENTMDW August 17, 2024 14:02
[2024-08-17 14:47] VITALS: BP 135/80; PULSE 85; RESP 18; TEMP 98.5; O2SAT 100
[2024-08-17 17:07] LABS: Chlamydia Trachomatis, NAA Negative (Negative); Neisseria gonorrhoeae, NAA Negative (Negative)
[2024-08-17] MEDS: TETANUS-DIPTH-ACEL PERTUSSIS 0.5ML SYR Tdap IM ONE (18:33)
[2024-08-17] MEDS: MEASLES, MUMPS & RUBELLA VAC(MMRII) 0.5ML SC ONE (18:36)
[2024-08-17 19:00] VITALS: BP 127/81; PULSE 88; RESP 18; TEMP 98.6; O2SAT 95
== END 2024-08-17 20:20 | disposition home or self-care (01) | DRG 560 ==
LOC: LDRP 07:24
PROVIDERS: ADMIT Obstetrics & Gynecology; ATTEND Obstetrics & Gynecology
PROC: 10E0XZZ Delivery of Products of Conception, External Approach (ICD-10-PCS; principal; 2024-08-16)
PROC: 3E033VJ Introduction of Other Hormone into Peripheral Vein, Percutaneous Approach (ICD-10-PCS; 2024-08-16)
PROC: 3E0R3BZ Introduction of Anesthetic Agent into Spinal Canal, Percutaneous Approach (ICD-10-PCS; 2024-08-16)
PROC: 00HU33Z Insertion of Infusion Device into Spinal Canal, Percutaneous Approach (ICD-10-PCS; 2024-08-16)
DX: O36.5930 Maternal care for other known or suspected poor fetal growth, third trimester, not applicable or unspecified (principal); Z37.0 Single live birth; O69.81X0 Labor and delivery complicated by cord around neck, without compression, not applicable or unspecified; Z3A.37 37 weeks gestation of pregnancy
CPT/HCPCS: 36415; 59025; 59409; 62282; 80053; 80307; 81001; 81002; 85025; 85610; 85730; 86780; 86803; 86850; 86900; 86901; 90472; 90715; 94760; 94762; 96360; 96361; 96365; 96366; 96372; A4344; G0378; J2590